=== PATIENT | male | born 1970 | race Caucasian/White ===

== ENCOUNTER → 2018-05-24 | Outpatient (CLI) | payer SELFPAY ==
[~2018-05-24] MED LIST: DOXYCYCLINE 10100 MG PO
== END ==
LOC: COL.RAD 11:29
DX: R10.13 Epigastric pain (principal)

== ENCOUNTER → 2018-06-05 | Outpatient (CLI) | payer SELFPAY ==
[2018-06-05 11:14] LABS: HEMATOCRIT 47.1 % (42.0-52.0); HEMOGLOBIN 16.8 g/dl (13.5-18.0); MEAN CELL VOLUME 94 fl (80.0-100.0); MEAN CORPUSCULAR HEMOGLOBIN 34 pg (27.0-31.0); MEAN CORPUSCULAR HGB CONC 36 g/dl (33.0-37.0); MEAN PLATELET VOLUME 8.7 fl (7.4-10.4); PLATELET COUNT 241 K/mm3 (130-400); RED BLOOD COUNT 5.02 M/mm3 (4.20-5.60); REDCELL DISTRIBUTION WIDTH-CV 12.7 % (11.5-14.5)
[2018-06-05 11:28] LABS: ALBUMIN 4.4 gm/dL (3.5-5.0); BILIRUBIN,TOTAL 0.5 mg/dL (0.0-1.0); CALCIUM 9.4 mg/dL (8.4-10.2); CREATININE, serum 0.83 mg/dL (0.66-1.25); POTASSIUM 3.9 mmol/L (3.4-5.0); TOTAL PROTEIN 7.7 gm/dL (6.4-8.2)
== END ==
LOC: COL.LAB 10:53
DX: K92.1 Melena (principal)

== ENCOUNTER 2019-02-27 13:36 | Emergency (ER) | payer SELFPAY ==
[~2019-02-27] VITALS: Ht 172.7 cm; Wt 77.3 kg
[2019-02-27 13:43] VITALS: TEMP 97.5
[2019-02-27 14:32] LABS: COLLECTION METHOD CLEAN CATCH
[2019-02-27 14:44] LABS: BASO # 0.1 (0.0-0.2); EOS # 0.1 (0.0-0.7); EOS % 2.3 % (0-4.0); GRAN # 2.5 (1.4-6.5); GRAN % 51.4 % (42.2-75.2); HEMATOCRIT 47.5 % (42.0-52.0); HEMOGLOBIN 16.9 g/dl (13.5-18.0); LYMPH # 1.7 (1.2-3.4); LYMPH % 35.6 % (20.0-51.0); MEAN CELL VOLUME 95 fl (80.0-100.0); MEAN CORPUSCULAR HEMOGLOBIN 34 pg (27.0-31.0); MEAN CORPUSCULAR HGB CONC 36 g/dl (33.0-37.0); MEAN PLATELET VOLUME 9.1 fl (7.4-10.4); MONO # 0.5 (0.1-0.6); MONO % 9.3 % (1.7-9.3); PLATELET COUNT 225 K/mm3 (130-400); RED BLOOD COUNT 5.02 M/mm3 (4.20-5.60); REDCELL DISTRIBUTION WIDTH-CV 13.2 % (11.5-14.5)
[2019-02-27 14:46] LABS: PROTHROMBIN TIME 11.3 SECONDS (9.7-12.8)
[2019-02-27 14:47] LABS: MUCOUS Present /lpf; PH 5 (5-8); URINE APPEARANCE Hazy; URINE BACTERIA Rare /hpf; URINE BILIRUBIN Negative (NEGATIVE); URINE BLOOD Negative (NEGATIVE); URINE COLOR Amber; URINE GLUCOSE Negative (NEGATIVE); URINE KETONE Negative (NEGATIVE); URINE LEUKOCYTE ESTERASE Negative (NEGATIVE); URINE NITRATE Negative (NEGATIVE); URINE PROTEIN(semi-quant) Negative (NEGATIVE)
[2019-02-27 14:48] LABS: ALBUMIN 4.3 gm/dL (3.5-5.0); BILIRUBIN,TOTAL 0.7 mg/dL (0.0-1.0); CALCIUM 9.7 mg/dL (8.4-10.2); CREATININE, serum 0.83 (0.66-1.25); POTASSIUM 4.2 mmol/L (3.4-5.0); TOTAL PROTEIN 7.9 gm/dL (6.4-8.2)
[2019-02-27 14:49] LABS: PARTIAL THROMBOPLASTIN TIME 30.2 SECONDS (26.0-37.0)
[2019-02-27] MEDS ORDERED: PREVACID 15MG15 M1 PO (14:50)
[2019-02-27 14:56] LABS: TRICYCLIC ANTIDEPRESS URINE NEGATIVE
[2019-02-27 15:17] LABS: TSH w REFLEX 1.42 uIU/mL (0.465-4.680)
[2019-02-27 17:41] VITALS: BP 123/86; PULSE 62
== END 2019-02-27 17:46 | disposition home or self-care (01) ==
LOC: COL.ER 13:36
PROVIDERS: Emergency Medicine; Family Medicine
DX: R10.12 Left upper quadrant pain (principal); G89.29 Other chronic pain; F17.210 Nicotine dependence, cigarettes, uncomplicated
CPT/HCPCS: J7030

== ENCOUNTER 2020-05-01 09:44 | Emergency (ER) | payer SELFPAY ==
[~2020-05-01] VITALS: Ht 172.7 cm; Wt 77.3 kg
[~2020-05-01 09:44] MED LIST changes: +PREVACID 15MG15 M1 PO
[2020-05-01 09:49] VITALS: BP 124/85; TEMP 97.9
[2020-05-01] MEDS ORDERED: CIPRO 500MG TA500 MG PO (11:24)
[2020-05-01] MEDS ORDERED: AMOXICILLIN 8751 TAB PO (11:24)
[2020-05-01] MEDS ORDERED: NORCO 325 MG-51 TAB PO (11:25)
[2020-05-01 12:18] VITALS: PULSE 75
== END 2020-05-01 12:19 | disposition home or self-care (01) ==
LOC: COL.ER 09:44
DX: S60.452A Superficial foreign body of right middle finger, initial encounter (principal); Z23 Encounter for immunization; X58.XXXA Exposure to other specified factors, initial encounter; Y92.009 Unspecified place in unspecified non-institutional (private) residence as the place of occurrence of the external cause

== ENCOUNTER 2021-02-20 14:01 | Emergency (ER) | payer SELFPAY ==
[~2021-02-20] VITALS: Ht 172.7 cm; Wt 77.3 kg
[~2021-02-20 14:01] MED LIST changes: +AMOXICILLIN 8751 TAB PO; +CIPRO 500MG TA500 MG PO; +NORCO 325 MG-51 TAB PO
[2021-02-20 14:20] VITALS: TEMP 98.1
[2021-02-20] MEDS ORDERED: TRIAM OI 0.1 80 TOP (14:55)
[2021-02-20] MEDS ORDERED: CEPHALEXIN500 M1 PO (14:55)
[2021-02-20] MEDS ORDERED: PREDNISONE20 MG PO (14:55)
[2021-02-20 15:28] VITALS: BP 108/72; PULSE 69
[2021-02-21] MEDS ORDERED: TRIAMCINOLONE A15 G3 TP (11:58)
[2021-02-21] MEDS ORDERED: CEPHALEXIN500 M1 PO (11:58)
== END 2021-02-20 15:28 | disposition home or self-care (01) ==
LOC: COL.ER 14:01
DX: L03.114 Cellulitis of left upper limb (principal); L03.113 Cellulitis of right upper limb; L25.9 Unspecified contact dermatitis, unspecified cause
CPT/HCPCS: J0696; J2930